=== PATIENT | female | born 1960 | race Caucasian/White ===

== ENCOUNTER → 2023-10-01 08:31 | Outpatient (REF) | payer BC, SELFPAY | LOC: RAD 08:31 | PROVIDERS: ATTENDING PHYSICIAN Family Medicine | DX: R05.2 Subacute cough (principal) | CPT/HCPCS: 71046 ==

== ENCOUNTER 2023-10-05 19:37 | Inpatient (IN) | payer BC, SELFPAY ==
[2023-10-05 15:35] VITALS: BP 139/94
[2023-10-05 16:12] LABS: Erythrocyte Sed Rate 99 mm/hour (0-20)
[2023-10-05 16:18] LABS: % Basophils 0.3 % (0-2); % Eosinophils 22.7 % (0-6); % Immature Granulocytes 1.3 % (0-0.5); % Lymphocytes 20.7 % (20.5-51.1); % Monocytes 5.8 % (1.7-9.3); % Neutrophils 49.2 % (42.2-75.2); Absolute Eosinophils 2.1 10^3/uL (0-0.7); Absolute Immature Granulocytes 0.1 10^3/uL (0-0.05); Absolute Lymphocytes 1.9 10^3/uL (1.2-3.4); Absolute Monocytes 0.5 10^3/uL (0.1-0.6); Absolute Neutrophils 4.5 10^3/uL (1.4-6.5); Hematocrit 31.6 % (37.0-47.0); Hemoglobin 10.8 g/dL (12.0-16.0); Mean Corp Hgb Conc. 34.2 g/dL (33.0-37.0); Mean Corpuscular Hgb 28.6 pg (27.0-31.0); Mean Corpuscular Volume 83.6 fL (81.0-99.0); Mean Platelet Volume 9.8 fL (7.4-10.4); Nucleated Red Blood Cells % 0 %; Platelet Count 336 10^3/uL (130-400); Red Blood Cell Count 3.78 10^6/uL (4.20-5.40); Red Cell Dist. Width 14.2 % (11.5-14.5); White Blood Cell Count 9.1 10^3/uL (4.8-10.8)
[2023-10-05 16:20] LABS: ALT (SGPT) 18 U/L (0-35); AST (SGOT) 25 U/L (14-36); Albumin 3.3 g/dl (3.5-5.0); Alkaline Phosphatase 83 U/L (38-126); Blood Urea Nitrogen 10 mg/dl (7-17); Calcium 8.7 mg/dl (8.4-10.2); Carbon Dioxide 24 mmol/L (22-30); Chloride 103 mmol/L (98-107); Glucose 100 mg/dl (70-99); Sodium 132 mmol/L (135-145); Total Bilirubin 0.8 mg/dl (0.2-1.3); Total Protein 9.1 g/dl (6.3-8.2); eGFR > 60.00
--- NOTE | 2023-10-05 17:41 | ED.GENMED ---
History of Present Illness
<Magdalena Castro NP - Last Filed: 10/05/23 22:56>
General
Chief Complaint: Visual Problem
Source: patient
Exam Limitations: none
Time Seen by Provider: 10/05/23 16:05
History of Present Illness
History of Present Illness:
Patient to ED with complaints of extreme weakness, headache, body aches, generalized hivesthat started approx 1 mos ago and continues to worsen. Difficulty with ambulation due to her weakness. Reports constant headache. Today reports blurred
vision and 3 episodes of feeling like she is looking for a Kaleidoscope. SHe has been to PCP 3 times since start of symptoms. Initial lyme neg. Elevated inflammatory markers noted. SHe was initally placed on oral prednisone taper. She reports
feeling worse while on prednisone. She was placed on famotidine which she reports has helped with her hives. Last seen by Dr. Randall on Wednesday. She was sent to [facility] for repeat labs including tick bourne diseases. As per Dr. Randall, lyme is
now positive.
Past History
<Magdalena Castro NP - Last Filed: 10/05/23 22:56>
Past History
ED Past Medical History: Other (Dysfunctional uterine bleeding.)
ED Past Surgical History:
Social History
Tobacco: Non-smoker
Alcohol: None
Personal:
Living: with family
Employment: Employed
Family History
Family History: Other (Noncontributory)
Review of Systems
<Magdalena Castro NP - Last Filed: 10/05/23 22:56>
Review of Systems
Allergies reviewed?: Yes
All Other Systems: ROS reviewed and negative except as documented in HPI and ROS
Constitutional: Reports fever, fatigue and chills
EENT: Reports other (sorethroat, sinus congestion)
Respiratory: Reports no symptoms
Cardiac: Reports no symptoms
ABD/GI: Reports no symptoms
Musculoskeletal: Reports joint pain (generalized)
Skin: Reports rash (generalized hives)
Neurological: Reports dizzy, headache and weakness
Psychiatric: Reports no symptoms
Phy Exam
<Magdalena Castro NP - Last Filed: 10/05/23 22:56>
General Physical Exam
General Presentation: moderate distress
General age: appears stated age
General Skin: warm and dry
General Habitus: normal
General Mental: alert
Cardiovascular Exam
Cardiovascular Exam: regular rate/rhythm and no edema
Pulmonary Exam
Pulmonary Exam: lungs clear and no respiratory distress
Neurological Exam
Neurological Exam: alert, oriented x3, CN II-XII intact, no motor deficits, no sensory deficits and speech normal
Mental
Mental Status: oriented to person, oriented to place and oriented to time
Cranial
Cranial Nerves: normal
EOM (CN3/4/6): intact
Motor
Gait: normal
Tremors: none
Other Movement Disorders: none
Right upper extremity: 4
Right lower extremity: 4
Left upper extremity: 4
Left lower extremity: 4
Bilateral upper extremities: 4
Sensory
Sensory Exam: intact
Cerebellar
Cerebellar Function: normal finger to nose, normal Romberg test and abnormal heel to duncan
Musculoskeletal Exam
Musculoskeletal Exam: full ROM and neuro vasc intact
Skin Exam
Skin Exam: normal color, warm/dry and no rash
Psychiatric Exam
Psychiatric Exam: normal mood/affect
Course
<Magdalena Castro NP - Last Filed: 10/05/23 22:56>
Orders/Labs/Results
Orders:
Orders
10/05/23 Dinner
Regular
At Your Request: Full Participation
Does patient need a safe tray?: No
10/05/23 15:52
C-Reactive Protein Urgent
CBC/With Diff [Complete Blood Count/With Diff] Urgent
CMP [Comprehensive Metabolic Panel] Urgent
ESR [Erythrocyte Sed Rate] Urgent
Lyme Progressive Urgent
Comment: ADDON
TSH Reflex To Free T4 Urgent
Comment: ADD ON
Blood Parasites Urgent
MIREILLE Source: B
Specimen Description:
Comment: ADDON
10/05/23 15:53
Electrocardiogram (*1) Urgent
Reason for Study: Tachycardia
EKG- Treatment ONCE
10/05/23 16:30
Add On- LAB Urgent
Tests Added?: TSH reflex free T4
10/05/23 16:35
CT Head W/o Iv Contrast Urgent
Comment:
Reason For Exam: vision changes.
10/05/23 16:45
Add On- LAB Urgent
Tests Added?: Lyme Progressive, Blood parasites
10/05/23 18:16
CefTRIAXone [Rocephin] 1,000 mg IV NOW STA
10/05/23 19:09
Admit/Transfer Patient As Directed
Co-Sign Provider:
Level of Care: Inpatient admission
Assign to:: Medical/Surgical
Physician / Group: kala
Diagnosis: lymes disease
Reason for Hospitalization: lymes disease
Expected length of stay greater than two midnights?: Yes
ELOS- Estimated Length of Stay in days: 2
I certify the patient meets the requirements for IP care: Yes
Code Status As Directed
Resuscitation Status: Full Code
10/05/23 19:18
Sterile Water [Sterile Water For Injection] 10 ml .ROUTE .STK-MED ONE
10/05/23 20:49
Acetaminophen [Tylenol] 650 mg PO Q4HPRN PRN
Heparin 5,000 units SC Q12
Ibuprofen [Motrin] 400 mg PO Q6HPRN PRN
10/05/23 20:49
Activity As Directed
Activity Level: As Tolerated
Vital Signs As Directed
Frequency: Per unit guidelines
DX Deep Vein Thrombosis Video Routine
10/05/23 21:28
Blood Culture Urgent
MIREILLE Source: Blood/Venous
Specimen Description:
10/05/23 22:00
Famotidine [Pepcid] 20 mg PO HS
10/06/23 06:00
Complete Blood Count/With Diff IN AM
Comprehensive Metabolic Panel IN AM
10/06/23 20:00
CefTRIAXone [Rocephin] 1,000 mg IV Q24H
Abnormal Lab Results
10/05/23
15:52
RBC 3.78 L 10^6/uL
(4.20-5.40)
Hgb 10.8 L g/dL
(12.0-16.0)
Hct 31.6 L %
(37.0-47.0)
Abs Immat Gran (auto) 0.1 H 10^3/uL
(0-0.05)
Absolute Eos (auto) 2.1 H 10^3/uL
(0-0.7)
Immature Gran % 1.3 H %
(0-0.5)
Eosinophils % 22.7 H %
(0-6)
ESR 99 H mm/hour
(0-20)
Sodium 132 L mmol/L
(135-145)
Glucose 100 H mg/dl
(70-99)
C-Reactive Protein 44.90 H mg/L
(0.0-10.00)
Total Protein 9.1 H g/dl
(6.3-8.2)
Albumin 3.3 L g/dl
(3.5-5.0)
10/05/23 15:52
10/05/23 15:52
Vital Signs
Initial and Last Documented VS:
Initial Vital Signs
Temp Pulse Resp BP Pulse Ox
98.0 F 114 18 139/94 96
10/05/23 15:35 10/05/23 15:35 10/05/23 15:35 10/05/23 15:35 10/05/23 15:35
Last Documented Vital Signs
Temp Pulse Resp BP Pulse Ox
99.5 F 101 18 129/80 98
10/05/23 20:53 10/05/23 20:53 10/05/23 20:53 10/05/23 20:53 10/05/23 21:00
<Andrea Giron MD - Last Filed: 10/05/23 20:19>
Orders/Labs/Results
Orders:
Orders
10/05/23 Dinner
Regular
At Your Request: Full Participation
Does patient need a safe tray?: No
10/05/23 15:52
C-Reactive Protein Urgent
CBC/With Diff [Complete Blood Count/With Diff] Urgent
CMP [Comprehensive Metabolic Panel] Urgent
ESR [Erythrocyte Sed Rate] Urgent
Lyme Progressive Urgent
Comment: ADDON
TSH Reflex To Free T4 Urgent
Comment: ADD ON
Blood Parasites Urgent
MIREILLE Source: B
Specimen Description:
Comment: ADDON
10/05/23 15:53
Electrocardiogram (*1) Urgent
Reason for Study: Tachycardia
EKG- Treatment ONCE
10/05/23 16:30
Add On- LAB Urgent
Tests Added?: TSH reflex free T4
10/05/23 16:35
CT Head W/o Iv Contrast Urgent
Comment:
Reason For Exam: vision changes.
10/05/23 16:45
Add On- LAB Urgent
Tests Added?: Lyme Progressive, Blood parasites
10/05/23 18:16
CefTRIAXone [Rocephin] 1,000 mg IV NOW STA
10/05/23 19:09
Admit/Transfer Patient As Directed
Co-Sign Provider:
Level of Care: Inpatient admission
Assign to:: Medical/Surgical
Physician / Group: kala
Diagnosis: lymes disease
Reason for Hospitalization: lymes disease
Expected length of stay greater than two midnights?: Yes
ELOS- Estimated Length of Stay in days: 2
I certify the patient meets the requirements for IP care: Yes
Code Status As Directed
Resuscitation Status: Full Code
10/05/23 19:18
Sterile Water [Sterile Water For Injection] 10 ml .ROUTE .STK-MED ONE
10/05/23 20:49
Acetaminophen [Tylenol] 650 mg PO Q4HPRN PRN
Heparin 5,000 units SC Q12
Ibuprofen [Motrin] 400 mg PO Q6HPRN PRN
10/05/23 20:49
Activity As Directed
Activity Level: As Tolerated
Vital Signs As Directed
Frequency: Per unit guidelines
DX Deep Vein Thrombosis Video Routine
10/05/23 21:28
Blood Culture Urgent
MIREILLE Source: Blood/Venous
Specimen Description:
10/05/23 22:00
Famotidine [Pepcid] 20 mg PO HS
10/06/23 06:00
Complete Blood Count/With Diff IN AM
Comprehensive Metabolic Panel IN AM
10/06/23 20:00
CefTRIAXone [Rocephin] 1,000 mg IV Q24H
Abnormal Lab Results
10/05/23
15:52
RBC 3.78 L 10^6/uL
(4.20-5.40)
Hgb 10.8 L g/dL
(12.0-16.0)
Hct 31.6 L %
(37.0-47.0)
Abs Immat Gran (auto) 0.1 H 10^3/uL
(0-0.05)
Absolute Eos (auto) 2.1 H 10^3/uL
(0-0.7)
Immature Gran % 1.3 H %
(0-0.5)
Eosinophils % 22.7 H %
(0-6)
ESR 99 H mm/hour
(0-20)
Sodium 132 L mmol/L
(135-145)
Glucose 100 H mg/dl
(70-99)
C-Reactive Protein 44.90 H mg/L
(0.0-10.00)
Total Protein 9.1 H g/dl
(6.3-8.2)
Albumin 3.3 L g/dl
(3.5-5.0)
10/05/23 15:52
10/05/23 15:52
Vital Signs
Initial and Last Documented VS:
Initial Vital Signs
Temp Pulse Resp BP Pulse Ox
98.0 F 114 18 139/94 96
10/05/23 15:35 10/05/23 15:35 10/05/23 15:35 10/05/23 15:35 10/05/23 15:35
Last Documented Vital Signs
Temp Pulse Resp BP Pulse Ox
99.5 F 101 18 129/80 98
10/05/23 20:53 10/05/23 20:53 10/05/23 20:53 10/05/23 20:53 10/05/23 21:00
<Magdalena Castro NP - Last Filed: 10/05/23 22:56>
*Critical Care Note
Total Time (30-74mins, 75-104mins- exclusive of procedures): Not Applicable
ED Attending Note
<Magdalena Castro NP - Last Filed: 10/05/23 22:56>
-
Portions of this chart may have been created with voice recognition software.� Occasional wrong word or��sound alike� substitutions may have occurred due to the inherent limitations of voice recognition software.
<Andrea Giron MD - Last Filed: 10/05/23 20:19>
ED Attending Note
Patient seen and examined by attending physician: Yes
I performed the substantive portion of visit, reviewed & personally made and approve the management plan that is documented in note by myself or ELIN.: Yes
ED Attending Note:
Patient with ongoing symptoms including myalgias joint pain pain with ambulation now complaining of some blurry vision. Patient had outpatient elevated inflammatory markers. Today's had some blurry vision. Positive outpatient Lyme titer recently
although initial 1 was negative. Positive EBV titers with IgM positive.
On exam patient is nontoxic in no distress. Nonfocal. No significant rash. No CCM rash. Neck is supple. Discs are sharp. Speech is normal. Lungs are clear and equal. Regular rate and rhythm no murmur. Abdomen nontender. No obvious joint
swelling or deformity.
Impression is progressive myalgias and arthralgias with elevated inflammatory markers. Differential would include Lyme disease viral illness or collagen vascular disease. Elevated eosinophil level would make consideration of collagen vascular
disease or allergic issue as a possibility. Patient symptoms are progressing enough that they warrant further inpatient management
Discharge Plan
Departure
Patient Disposition: Admit
Date of Disposition: 10/05/23
Time of Disposition: 18:28
Presentation/result/management discussed w/ accepting MD/DO: Hospitalist
Patient with high blood pressure during this ER visit?: No
Condition: Fair
Discharge Problem:
Suspected Lyme disease, Weakness
Interventions
Interventions:
*Risk Screen - Suicide Last Done: 10/05/23 15:35
*General Assessment Last Done: 10/05/23 15:35
*Neglect/Abuse Screening Last Done: 10/05/23 15:35
ED- Fall Risk Assessment Last Done: 10/05/23 20:53
*ED COVID-19 Vaccine History Last Done: 10/05/23 15:55
*Nursing Disposition Last Done: 10/05/23 20:53
ED- Neurological Assessment Last Done: 10/05/23 16:44
ED-EENT Assessment Last Done: 10/05/23 16:44
Discharge Date and Time
Discharge Date/Time: 10/05/23 20:54
--- NOTE | 2023-10-05 19:12 | HPS.HSE ---
Family Physician
-
Family Physician: Jocelyn Randall
Chief Complaint
-
weakness
History of Present Illness
63-year-old female past medical history of dysfunctional uterine bleeding presenting with weakness/fatigue, headache, neck pain, body aches, diffuse hives, chills starting 1 month ago. She has been seeing her primary care physician 3 times since
the start of symptoms. She was initially tested for Lyme's last month which was negative. She was started on oral prednisone taper which made her feel worse. She tried taking Benadryl, Tylenol and ibuprofen which she felt made the hives worse and
only Pepcid helped.
She was tested again for Lymes and tickborne illnesses 3 days ago and today she found out she was positive for Lyme's. She was started on cefuroxime 6 days ago with some slight improvement initially but no further improvement.
She has also begun to have blurred vision and kaleidoscope colors in her visual field. She also has a dry cough with shortness of breath. She denies any chest pain.
She denies finding any ticks on her body but [place] where she would be exposed. She denies any recent travel history.
She is a former smoker. She denies alcohol.
Medical History
Past Medical History
Past Medical History: Reports None
Past Surgical History: Reports
Social History
Tobacco: Former Smoker
Alcohol: None
Drug: None
Family History
Family History: Not pertinent
Allergies / Home Medications
Allergies reflects when Allergies were last updated in [facility].
Home Medications with original date entered in [facility]
Allergy/Medication List:
Allergies
Allergy/AdvReac Type Severity Reaction Status Date / Time
Iodinated Contrast Media Allergy Intermediate Hives Verified 10/05/23 15:40
[IV Dye, Iodine Containing]
Home Medications
cefdinir 300 mg capsule 300 mg PO BID 10/05/23
famotidine 20 mg tablet (Pepcid AC) 20 mg PO HS 10/05/23
triamcinolone acetonide 0.1 % topical ointment 1 applic topical DAILYPRN PRN rash 10/05/23
Review of Systems
-
History Source: Patient
A 12 point ROS was completed and negative except as noted: Yes
Constitutional: Reports See HPI
EENT: Reports No Symptoms
Respiratory: Reports See HPI
Cardiac: Reports No Symptoms
Abdomen/GI: Reports No Symptoms
: Reports No Symptoms
Musculoskeletal: Reports See HPI
Skin: Reports No Symptoms
Neurological: Reports See HPI
Endocrine: Reports No Symptoms
Hematologic/Lymphatic: Reports No Symptoms
Psych: Reports No Symptoms
Physical Exam
Vital Signs
Vital Signs
Temp Pulse Resp BP Pulse Ox
98.0 F 114 18 139/94 96
10/05/23 15:35 10/05/23 15:35 10/05/23 15:35 10/05/23 15:35 10/05/23 15:35
Physical Exam
General: Well Developed, Well Nourished and No Apparent Distress
HEENT: NormoCephalic, Moist mucous membranes and Atraumatic
Respiratory: Clear
Cardiac: S1/S2 and Regular Rhythm; No Murmur or Rub
GI: Soft, Non Tender, Non Distended and Normal Bowel Sounds; No Organomegaly
Rectal: Deferred by Provider
Musculoskeletal: No Clubbing, No Cyanosis and No Edema
Skin: No Rash
Neuro: Nonfocal/grossly intact
Laboratory Results
-
10/05/23 15:52
10/05/23 15:52
Laboratory Results
Total Bilirubin 0.8 mg/dl (0.2-1.3) 10/05/23 15:52
AST 25 U/L (14-36) 10/05/23 15:52
ALT 18 U/L (0-35) 10/05/23 15:52
Alkaline Phosphatase 83 U/L (38-126) 10/05/23 15:52
Data Reviewed
-
Lab Data: Labs Reviewed by me
Old Records: Reviewed
Impression/Plan
-
IMPRESSION:
PLAN:
# Lyme's disease
-Check blood cultures
-Lyme's antibody pending
-Blood parasites pending
-Awaiting lab testing from [facility] where she had positive Lyme's test
-CT head pending
-TSH pending
-Check chest x-ray
-Ceftriaxone
-ID consulted
-Tylenol, ibuprofen for body aches
-Pepcid for rash, patient refusing Benadryl
History of dysfunctional uterine bleeding
Full code
DVT prophylaxis�heparin
Regular diet
[2023-10-05] MEDS: ROCEPHIN 1000 MG IV (19:19)
[2023-10-05 19:26] VITALS: BP 111/85
[2023-10-05 20:00] VITALS: BP 108/80
[2023-10-05 20:52] VITALS: BMI 35.4
[2023-10-05 20:53] VITALS: BP 129/80
--- NOTE | 2023-10-05 20:56 | PTCARENOTE ---
Patient received from ED via wheelchair. Patient ambulated into the room. AAOx3, VSS. Pt reports no pain at this time. Patient oriented to the room, call carlos is within reach.
[2023-10-05] MEDS: PEPCID 20 MG PO (21:15)
[2023-10-05 23:42] VITALS: BP 95/55
[2023-10-06 06:50] LABS: % Basophils 0.5 % (0-2); % Eosinophils 21.8 % (0-6); % Immature Granulocytes 1.4 % (0-0.5); % Lymphocytes 23.7 % (20.5-51.1); % Neutrophils 46.6 % (42.2-75.2); Absolute Eosinophils 1.8 10^3/uL (0-0.7); Absolute Immature Granulocytes 0.1 10^3/uL (0-0.05); Absolute Lymphocytes 1.9 10^3/uL (1.2-3.4); Absolute Monocytes 0.5 10^3/uL (0.1-0.6); Absolute Neutrophils 3.7 10^3/uL (1.4-6.5); Hematocrit 30.4 % (37.0-47.0); Mean Corp Hgb Conc. 32.9 g/dL (33.0-37.0); Mean Corpuscular Hgb 28.3 pg (27.0-31.0); Mean Corpuscular Volume 86.1 fL (81.0-99.0); Mean Platelet Volume 9.8 fL (7.4-10.4); Nucleated Red Blood Cells % 0 %; Platelet Count 284 10^3/uL (130-400); Red Blood Cell Count 3.53 10^6/uL (4.20-5.40); Red Cell Dist. Width 14.2 % (11.5-14.5)
[2023-10-06 07:22] LABS: ALT (SGPT) 15 U/L (0-35); AST (SGOT) 21 U/L (14-36); Albumin 2.8 g/dl (3.5-5.0); Alkaline Phosphatase 69 U/L (38-126); Blood Urea Nitrogen 7 mg/dl (7-17); Calcium 8.2 mg/dl (8.4-10.2); Carbon Dioxide 22 mmol/L (22-30); Chloride 104 mmol/L (98-107); Estimated Creatinine Clearance 85 ml/min; Glucose 100 mg/dl (70-99); Potassium 3.8 mmol/L (3.5-5.1); Sodium 134 mmol/L (135-145); Total Bilirubin 0.5 mg/dl (0.2-1.3); Total Protein 7.9 g/dl (6.3-8.2); eGFR > 60.00
[2023-10-06 07:40] VITALS: BP 104/61
--- NOTE | 2023-10-06 07:59 | W.PN.HOSP.TC ---
Today's Communication/Plan
-
see A/P
Assessment / Plan
Assessment / Plan
HPI: 63-year-old female past medical history of dysfunctional uterine bleeding presented with weakness/fatigue, headache, neck pain, body aches, diffuse hives, chills that started 1 month ago.
She has seen her primary care physician 3 times since the start of symptoms. She was initially tested for Lyme's last month which was negative. She was started on oral prednisone taper which made her feel worse. She tried taking Benadryl, Tylenol
and ibuprofen which she felt made the hives worse and only Pepcid helped.
She was tested again for Lymes and tickborne illnesses 3 days ago [employer] and she found out she was positive for Lyme's. She was started on cefuroxime 6 days ago [employer] with some slight improvement initially but no further improvement.
She has also begun to have blurred vision and kaleidoscope colors in her visual field. She also has a dry cough with shortness of breath. She denies any chest pain.
She denies finding any ticks on her body but [place] area where she would be exposed. She denies any recent travel history.
She is a former smoker. She denies alcohol.
A/P:
# Lyme's disease
Follow blood cultures
Follow Lyme's serology
Blood parasites smear: no parasite seen
CT head: No acute intracranial abnormality noted.
TSH WNL at 2.0
Chest x-ray noted hyperaeration may be a sign of an asthmatic type process, or COPD
Cont Ceftriaxone, add doxycycline
Cont Tylenol, ibuprofen for body aches
Cont Pepcid for rash, patient refused Benadryl
ID consulted
# Mild hyponatremia
Sodium level 134
# Normocytic anemia, may be from dysfunctional uterine bleeding
Hgb 10 from baseline 14
Check iron panel, B12, folate levels
# History of dysfunctional uterine bleeding
Full code
DVT prophylaxis� lovenox SQ
Regular diet
DW at bedside
Anticipated Discharge: Within 24 hours
Subjective/Interval History
-
Date of Service: October 06, 2023
Objective Data
-
Labs:
Laboratory Results
10/06/23
05:50
WBC 8.0
Hgb 10.0 L
Hct 30.4 L
Plt Count 284
Sodium 134 L
Potassium 3.8
Chloride 104
Carbon Dioxide 22
BUN 7
Creatinine 0.8
Glucose 100 H
Calcium 8.2 L
Total Bilirubin 0.5
AST 21
ALT 15
Alkaline Phosphatase 69
Vital Signs:
Vital Signs
Temp Pulse Resp BP Pulse Ox
37.3 C 91 18 95/55 96
10/05/23 23:42 10/05/23 23:42 10/05/23 23:42 10/05/23 23:42 10/05/23 23:42
I&O
10/05/23 10/06/23 10/07/23
06:59 06:59 06:59
Intake Total 480 / 480
Balance 480 / 480
Review of Systems
-
Neuro: Reports Headache (mild) and Other (mild neck spasm (back of neck))
Physical Exam
-
General: Well Developed, Well Nourished, No Apparent Distress, Comfortable and Conversant; Negative Respiratory Distress
HEENT: Normocephalic, Atraumatic, Nose Appears Normal and Ears Appear Normal; Negative Oxygen
Respiratory: Clear to Auscultation and Non Labored Respirations; Negative Accessory Resp Muscle Use
Cardiac: Regular Rhythm and S1/S2
GI: Soft, Nontender, Nondistended and Normal Bowel Sounds
Skin: Warm and Dry
Neuro: Awake, Alert, Oriented, AO x 3 and Nonfocal/Grossly Intact
Psych: Calm and Intact Judgement/Insight
Data Reviewed
-
CT Scan: Report Reviewed by me
Labs: Labs Reviewed by me
[2023-10-06 08:51] LABS: Iron 60 ug/dl (37-170)
[2023-10-06 09:01] LABS: Percent Saturation 34 % (20-50); Total Iron Binding Capacity 173 ug/dl (265-497)
[2023-10-06 09:20] VITALS: BP 120/75; PULSE 96
[2023-10-06 09:21] VITALS: BP 120/75; PULSE 96
--- NOTE | 2023-10-06 09:30 | PTOTSP ---
The patient demonstrated independence with ambulation and elevations without a device. Discussed with her gradually increasing activity level, which she mentioned she could do by walking in her long hallways at work. Discussed the option of
Outpatient PT to address strength/endurance deficits if she felt it was necessary. Encouraged the patient to walk in the hallway while here to increase activity level. No acute PT needs at this time, will sign off.
[2023-10-06] MEDS: VIBRAMYCIN 260 MG IV (10:29)
[2023-10-06 10:47] LABS: Folate 4.6 ng/ml (2.76-20); Vitamin B12 236 pg/ml (239-931)
--- NOTE | 2023-10-06 13:23 | CON.ID ---
Consultation
-
Date/Time Consultation Requested: 10/05/23 22:03
Date/Time Consultation Performed: 10/06/23 13:24
Requesting Provider: Dr Singh
Performing Provider: Dr Ray
Reason for Consultation: lyme disease
Chief Complaint / Past History
Chief Complaint
weakness
History of Present Illness
Ms Juan is a 63 year old female without significant past medical therapy who presented here for a 1 month history of chills, weakness/fatigue, headache, neck pain, body aches, diffuse hives. She was tested for lyme disease 1 month ago with negative
serologies at that time, repeat serologies have become positive for IgM for lyme however babesia, anaplasma, ehrlichia serologies remain normal. Reports symptoms initially began one month ago with malaise. She does now tell me that she was having
chills and sweats at that time which is new information to me. The progressed to headache, not improving with motrin, took tyelnol and shortly thereafter developed hives which have persisted. Progressed to myalagias, no joint pains. Saw PCP for
hives and given prednisone taper from 40 mg PO qday x4 days tapering by 10 mg each 4 days. Hives did not respond. Started allerga but had palpiations and shortness of breath she attributed to hives. [place]. No known tick
bites. She was started on cefuroxime 6 days ago with minimal improvment. Earlier in her course she has had a course of oral steroids for the rash with progression of the hives. now reporting blurred vision with kaleidoscope colors, dry cough and
shortness of breath. Presented here.
Since arrival here wbc 8.0, hgb 10, plt 284, no L shift, she has eosinophilia with AEC 1600, cr 0.8, crp 44, t bili 0.5, ast 21, alt 15, alk penny 69, a third lyme test has been sent today, babesia smear was negative, blood cultures no growth to date,
ekg no blocks, CT head no lesions, currently on IV ceftriaxone and IV doxycycline. ID is consulted for assistance with management.
Past History
Past Medical History: None
Past Surgical History:
Additional Past Surgical History:
Allergy History:
Iodinated Contrast Media [IV Dye, Iodine Containing] Allergy (Intermediate, Verified 10/05/23 15:40)
Hives
Medications Reviewed: Yes
Social History
Tobacco: Former Smoker
Alcohol: None
Drug: None
Family History
Family History: Not Pertinent
Review of Systems
Review of Systems
General: Chills; Negative Fever
All systems: All other systems were reviewed and were negative
Vital Signs
Temp Pulse Resp BP Pulse Ox
98.7 F 90 16 104/61 96
10/06/23 07:40 10/06/23 07:40 10/06/23 07:40 10/06/23 07:40 10/06/23 07:40
Physical Exam
Physical Exam
Constitutional: No Acute Distress
Cardiovascular: Regular Rate and S1/S2; Negative Murmur or Rub
Pulmonary: Clear and Symmetric; Negative Wheezes, Rales or Rhonchi
Gastrointestinal: Soft, Non Tender, Non Distended and Normal Bowel Sounds
Skin: Warm, Dry and Rash (diffuse hives, palpable raised mildly erythematous lesions, no excoriations); Negative Jaundice
Lab / Diagnostic Study Results
10/06/23 05:50
10/06/23 05:50
Abs Immat Gran (auto) 0.1 10^3/uL (0-0.05) H 10/06/23 05:50
Absolute Neuts (auto) 3.7 10^3/uL (1.4-6.5) 10/06/23 05:50
Absolute Lymphs (auto) 1.9 10^3/uL (1.2-3.4) 10/06/23 05:50
Absolute Monos (auto) 0.5 10^3/uL (0.1-0.6) 10/06/23 05:50
Absolute Basos (auto) 0.0 10^3/uL (0-0.2) 10/06/23 05:50
Immature Gran % 1.4 % (0-0.5) H 10/06/23 05:50
Neutrophils % 46.6 % (42.2-75.2) 10/06/23 05:50
Lymphocytes % 23.7 % (20.5-51.1) 10/06/23 05:50
Monocytes % 6.0 % (1.7-9.3) 10/06/23 05:50
Eosinophils % 21.8 % (0-6) H 10/06/23 05:50
Basophils % 0.5 % (0-2) 10/06/23 05:50
ESR 99 mm/hour (0-20) H 10/05/23 15:52
C-Reactive Protein 44.90 mg/L (0.0-10.00) H 10/05/23 15:52
Microbiology Results
Micro:
10/06/23 09:55 Blood Culture - Pending
Blood/Venous
10/05/23 21:28 Blood Culture - Pending
Blood/Venous
10/05/23 15:52 Blood Parasites Smear - Final
Blood/Venous No blood parasites seen.
Assessment / Plan
Probable Acute Lyme Disease
Eosinophilia - AEC 1600
- coinfection with ehrlichia, anaplasma, babesia ruled out
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
- continue doxycycline plan 21 days of therapy - switched to oral as not vomiting and 100% bioavailability
- would recheck eosinophils daily while here and then again in two weeks
- hives likely driven by eosinophilia. Eosinophilia is not typical in lyme disease but can be caused by any subacute infection
- maximized famotidine
- refuses benadryl, second gen H2 jono
- could try topical benadryl or steroids if not responding to famotidine
- suspect visual changes are migraine.
- follow clinically
[2023-10-06 15:30] VITALS: BP 115/68
--- NOTE | 2023-10-06 16:48 | CM ---
Kelly is a 63yo female admitted to with new dx of Lymes. Prior to illness she wa (I) amb and adl's. Currently she is ambulating with a cane for long distances/uneven surfaces. She anticipates returning home at discharge with no needs.
Plan: discharge with no needs
PCP: Jocelyn Randall
Pharmacy: [facility]
[2023-10-06] MEDS: PEPCID 20 MG PO (20:30)
[2023-10-06] MEDS: VIBRAMYCIN 100 MG PO (20:30)
[2023-10-06 23:43] VITALS: BP 105/62
[2023-10-07 07:32] LABS: % Basophils 0.5 % (0-2); % Eosinophils 18.1 % (0-6); % Immature Granulocytes 1.6 % (0-0.5); % Lymphocytes 25.7 % (20.5-51.1); % Monocytes 6.1 % (1.7-9.3); Absolute Eosinophils 1.4 10^3/uL (0-0.7); Absolute Immature Granulocytes 0.1 10^3/uL (0-0.05); Absolute Monocytes 0.5 10^3/uL (0.1-0.6); Absolute Neutrophils 3.8 10^3/uL (1.4-6.5); Hematocrit 31.3 % (37.0-47.0); Hemoglobin 10.4 g/dL (12.0-16.0); Mean Corp Hgb Conc. 33.2 g/dL (33.0-37.0); Mean Corpuscular Hgb 28.7 pg (27.0-31.0); Mean Corpuscular Volume 86.2 fL (81.0-99.0); Mean Platelet Volume 9.5 fL (7.4-10.4); Nucleated Red Blood Cells % 0 %; Platelet Count 263 10^3/uL (130-400); Red Blood Cell Count 3.63 10^6/uL (4.20-5.40); Red Cell Dist. Width 14.5 % (11.5-14.5); White Blood Cell Count 7.9 10^3/uL (4.8-10.8)
[2023-10-07] MEDS: VIBRAMYCIN 100 MG PO (07:32)
[2023-10-07] MEDS: PEPCID 20 MG PO (07:32)
[2023-10-07 07:55] VITALS: BP 111/76
[2023-10-07 08:00] LABS: Blood Urea Nitrogen 8 mg/dl (7-17); Calcium 8.4 mg/dl (8.4-10.2); Carbon Dioxide 23 mmol/L (22-30); Chloride 108 mmol/L (98-107); Estimated Creatinine Clearance 97 ml/min; Glucose 102 mg/dl (70-99); Potassium 4.1 mmol/L (3.5-5.1); Sodium 136 mmol/L (135-145); eGFR > 60.00
--- NOTE | 2023-10-07 09:05 | W.PN.HOSP.TC ---
Addendum entered and electronically signed by Talita Combs MD 10/07/23 12:45:
total DC time 35 min
Original Note:
Today's Communication/Plan
-
see A/P
Assessment / Plan
Assessment / Plan
HPI: 63-year-old female past medical history of dysfunctional uterine bleeding presented with weakness/fatigue, headache, neck pain, body aches, diffuse hives, chills that started 1 month ago.
She has seen her primary care physician 3 times since the start of symptoms. She was initially tested for Lyme's last month which was negative. She was started on oral prednisone taper which made her feel worse. She tried taking Benadryl, Tylenol
and ibuprofen which she felt made the hives worse and only Pepcid helped.
She was tested again for Lymes and tickborne illnesses 3 days ago [facility] and she found out she was positive for Lyme's. She was started on cefuroxime 6 days ago [facility] with some slight improvement initially but no further improvement.
She has also begun to have blurred vision and kaleidoscope colors in her visual field. She also has a dry cough with shortness of breath. She denies any chest pain.
She denies finding any ticks on her body but [place] would be exposed. She denies any recent travel history.
She is a former smoker. She denies alcohol.
A/P:
# Lyme's disease
blood cultures so far negative
Follow Lyme's serology sent from ED (can follow up with PCP, although likely no need to do so given pt already known to have seroconverted)
Blood parasites smear: no parasite seen
CT head: No acute intracranial abnormality noted.
TSH WNL at 2.0
Chest x-ray noted hyperaeration may be a sign of an asthmatic type process, or COPD
Off Ceftriaxone, cont PO doxycycline 100 mg BID for total 21 days
Cont Tylenol, ibuprofen for body aches
Cont Pepcid for rash, patient refused Benadryl
ID input appreciated
# Mild hyponatremia, resolved
Sodium level 136
# Normocytic anemia, may be from dysfunctional uterine bleeding
Hgb 10 from baseline 14
iron panel acceptable
B12 level low, will start B12 repletion
# History of dysfunctional uterine bleeding
Full code
DVT prophylaxis� lovenox SQ
Regular diet
DW ID
Anticipated Discharge: Today
Subjective/Interval History
-
Date of Service: October 07, 2023
Objective Data
-
Labs:
Laboratory Results
10/07/23
06:52
WBC 7.9
Hgb 10.4 L
Hct 31.3 L
Plt Count 263
Sodium 136
Potassium 4.1
Chloride 108 H
Carbon Dioxide 23
BUN 8
Creatinine 0.7
Glucose 102 H
Calcium 8.4
Vital Signs:
Vital Signs
Temp Pulse Resp BP Pulse Ox
37.2 C 98 20 111/76 95
10/07/23 07:55 10/07/23 07:55 10/07/23 07:55 10/07/23 07:55 10/07/23 07:55
I&O
10/06/23 10/07/23 10/08/23
06:59 06:59 06:59
Intake Total 480 / 480 1200 / 1200
Balance 480 / 480 1200 / 1200
Review of Systems
-
All other systems: Reviewed and negative
Physical Exam
-
General: Well Developed, Well Nourished, No Apparent Distress, Comfortable and Conversant; Negative Respiratory Distress
HEENT: Normocephalic, Atraumatic, Nose Appears Normal and Ears Appear Normal; Negative Oxygen
Respiratory: Clear to Auscultation and Non Labored Respirations; Negative Accessory Resp Muscle Use
Cardiac: Regular Rhythm and S1/S2
GI: Soft, Nontender, Nondistended and Normal Bowel Sounds
Skin: Warm and Dry
Neuro: Awake, Alert, Oriented, AO x 3 and Nonfocal/Grossly Intact
Psych: Calm and Intact Judgement/Insight
Data Reviewed
-
CT Scan: Report Reviewed by me
Labs: Labs Reviewed by me
--- NOTE | 2023-10-07 11:01 | CM ---
Attempted to meet with Kelly this morning, however she was asleep. Her roommate had mentioned that Kelly has been struggling, so I did not attempt to wake her.
CM to return later today to speak with Kelly.
--- NOTE | 2023-10-07 11:43 | W.PN.ID1 ---
Date of Service
Date of Service: October 07, 2023
Today's Communication
hives resolve
AEC improving
doxycycline x21 days
cbc with diff in two weeks
follow up with pcp, follow up with ID PRN
Assessment / Plan
Probable Acute Lyme Disease
Eosinophilia - improving
AEC now 1400 - declining
- coinfection with ehrlichia, anaplasma, babesia ruled out
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
- continue doxycycline plan 21 days of therapy - switched to oral as not vomiting and 100% bioavailability
- would recheck eosinophils and calculate AEC again in two weeks
- hives likely driven by eosinophilia. Eosinophilia is not typical in lyme disease but can be caused by any subacute infection. Hives did resolve today
- maximized famotidine 20 mg po BID
- refuses benadryl, second gen H2 jono
- could try topical benadryl or steroids if not responding to famotidine
- suspect visual changes are migraine.
- follow clinically
Chief Complaint
-: Other (lyme, eosinophilia)
Subjective / Review of Systems
afebrile
bp stable
without leukocytosis
AEC now 1400 - declining
tolerating current therapies
no hives today
Vital Signs / Physical Exam
Vital Signs
Vital Signs
Temp Pulse Resp BP Pulse Ox
98.9 F 98 20 111/76 95
10/07/23 07:55 10/07/23 07:55 10/07/23 07:55 10/07/23 07:55 10/07/23 07:55
Physical Exam
Constitutional: No Acute Distress
Cardiovascular: Regular Rate and S1/S2; Negative Murmur or Rub
Pulmonary: Clear and Symmetric; Negative Wheezes or Rales
Gastrointestinal: Soft, Non Tender, Non Distended and Normal Bowel Sounds
Skin: Warm and Dry; Negative Rash (hives have resolved) or Jaundice
Objective Data
Lab Data
Lab Results
10/07/23 06:52
10/07/23 06:52
ESR 99 mm/hour (0-20) H 10/05/23 15:52
Estimated Creat Clear 97 ml/min 10/07/23 06:52
Total Bilirubin 0.5 mg/dl (0.2-1.3) 10/06/23 05:50
AST 21 U/L (14-36) 10/06/23 05:50
ALT 15 U/L (0-35) 10/06/23 05:50
Alkaline Phosphatase 69 U/L (38-126) 10/06/23 05:50
C-Reactive Protein 44.90 mg/L (0.0-10.00) H 10/05/23 15:52
Most recent labs reviewed.
Micro Results:
10/06/23 09:55 Blood Culture - Preliminary
Blood/Venous No Growth in 24 hours- Final report to follow
10/05/23 21:28 Blood Culture - Preliminary
Blood/Venous No Growth in 24 hours- Final report to follow
10/05/23 15:52 Blood Parasites Smear - Final
Blood/Venous No blood parasites seen.
Care Review
Plan reviewed with: Physician (Dr Combs plan, dispo)
[2023-10-07 11:55] VITALS: BP 109/71
--- NOTE | 2023-10-07 12:32 | W.DCSUMMARY ---
Discharge Summary
Discharge Data
Date of Admission: 10/05/23
Date of Discharge: 10/07/23
-
Pending Results: No
Hospital Course
Principal Diagnosis:
Lyme's disease
Low B12 level at 236
Chronic Diagnoses:�
Normocytic anemia, may be from dysfunctional uterine bleeding
History of dysfunctional uterine bleeding
Consultations:�
Infectious disease
Procedures:�
None
Clinical course:�
This is a 63-year-old female with past medical history as stated above, who presented with weakness/fatigue, mild headache, neck pain, body aches, diffuse hives, chills that started 1 month ago.
He was tested positive for Lyme's disease outpatient.
Problem 1:
Lyme's disease.
Her blood cultures were negative.
Her blood parasites smear showed no parasite.
Lyme serology was again sent from the emergency room, which can be followed up outpatient. Although following up Lyme serology may not be necessary anymore given patient is already known to have seroconverted.
Her CT head showed no acute intracranial abnormality.
She was briefly on ceftriaxone from admission which was later taken off.
She can continue with oral doxycycline 100 mg twice daily for total 21 days per ID.
She can continue with Pepcid for her skin rash which has significantly improved during her hospital stay.
As for the rest of her medical problems, they were stable during her hospital stay.
Discharge Plan
-
Patient Disposition: Home (Routine Discharge)
Discharge Diagnosis/Procedures: Lyme's disease; low B12 level (at 236)
Condition: Good
Diet: As tolerated
Activity: As tolerated
Driving Restrictions: Not until seen by your Dr
Blood Work: CBC with diff, with your PCP in 2 weeks
Referrals:
Jocelyn Randall MD [Family Provider] - in less than 1 week
Additional Discharge Medication Instructions: continue oral doxycycline 100 mg twice daily for 20 more days (avoid sun exposure and dairy product while on doxycycline)
Continue B12 supplement
You can take pepcid twice daily for your skin rash
Prescriptions:
New
doxycycline hyclate 100 mg Capsule
100 mg PO Q12 20 Days Qty: 40 0RF
cyanocobalamin (vitamin B-12) 1,000 mcg Tablet
1,000 mcg PO DAILY Qty: 30 0RF
Continued
triamcinolone acetonide 0.1 % Ointment
1 applic TOPICAL DAILYPRN PRN (Reason: rash)
Changed
famotidine [Pepcid AC] 20 mg Tablet
20 mg PO Q12H Qty: 0 0RF
Discontinued
cefdinir 300 mg Capsule
300 mg PO BID
Patient Comments:
10/05/23: filled 09/30/23, take 1 capsule twice a day for 7 days
Discharge Orders:
Discharge Patient (As Directed); Ordered 10/07/23
Ordered By: Talita Combs
Discharge Date and Time
Print Language: GREENLANDIC
[2023-10-07] MEDS: VITAMIN B-12 1000 MCG PO (12:46)
--- NOTE | 2023-10-07 12:47 | CM ---
Arvind met with Kelly at bedside today. She is being discharged to home today and feels that it will be good to be home in her own bed. She has not been able to sleep much during the hospitalization.
Kelly's will pick her up to go home.
No needs identified.
[2023-10-07 15:51] LABS: Lyme Antibody Screen, EIA Negative (Negative)
== END 2023-10-07 13:52 | disposition home or self-care (01) | DRG 868 ==
LOC: 4 EAST ACU 19:37
PROVIDERS: ADMITTING PHYSICIAN Hospitalist; ATTENDING PHYSICIAN Internal Medicine; EMERGENCY PHYSICIAN Emergency Medicine; FAMILY PHYSICIAN Family Medicine; OTHER PHYSICIAN Student in an Organized Health Care Education/Training Program
DX: A69.20 Lyme disease, unspecified (principal); E87.1 Hypo-osmolality and hyponatremia; D64.9 Anemia, unspecified; Z87.42 Personal history of other diseases of the female genital tract
CPT/HCPCS: 70450; 80048; 80053; 82607; 82728; 82746; 83540; 83550; 83735; 84443; 85025; 85652; 86140; 86618; 87015; 87040; 87207; 93005; 97161; 97166; 99285

== ENCOUNTER → 2024-09-14 09:47 | Outpatient (REF) | payer BC, SELFPAY | LOC: RAD 09:47 | PROVIDERS: ATTENDING PHYSICIAN Family Medicine | DX: R13.19 Other dysphagia (principal) | CPT/HCPCS: 76536 ==

== ENCOUNTER → 2024-09-26 19:25 | Outpatient (REF) | payer BC, SELFPAY | LOC: WDC 19:25 | PROVIDERS: ATTENDING PHYSICIAN Family Medicine | DX: Z12.31 Encounter for screening mammogram for malignant neoplasm of breast (principal) | CPT/HCPCS: 77063; 77067 ==

== ENCOUNTER → 2024-12-18 06:56 | Outpatient (REF) | payer BC, SELFPAY | LOC: RAD 06:56 | PROVIDERS: ATTENDING PHYSICIAN Otolaryngology; FAMILY PHYSICIAN Family Medicine; REFERRING PHYSICIAN Internal Medicine Gastroenterology | DX: D14.1 Benign neoplasm of larynx (principal) | CPT/HCPCS: 70491; Q9967 ==

== ENCOUNTER 2024-12-25 08:10 | Emergency (ER) | payer BC, SELFPAY ==
[2024-12-25 08:11] VITALS: BP 137/90
[2024-12-25 09:01] VITALS: BMI 28.5
[2024-12-25] MEDS: NSS 1000 IV (09:26)
--- NOTE | 2024-12-25 09:26 | ED.GENMED ---
History of Present Illness
General
Chief Complaint: Skin Problem
Time Seen by Provider: 12/25/24 08:35
Nursing documentation reviewed up to this point in time: agreed with
History of Present Illness
History of Present Illness:
64-year-old female presents to the ER for evaluation of right-sided facial swelling noted this morning on awakening. Patient is currently undergoing malignancy workup for a mass on her larynx. She has been experiencing hoarse voice and is
currently being evaluated by ENT. She had outpatient CT last week confirming presence of mass along with regional lymphadenopathy and some evidence of possible metastatic disease in the chest. She reports that she last saw the dentist 3 weeks ago
and had routine exam, she has not been on any antibiotics recently. She denies any dental pain per se. She denies any pain with mouth opening. She has had right ear pain for the last several weeks, this is not new today. She has been eating and
drinking but has pain with swallowing, again not new today. She denies any peripheral edema. She denies fevers or chills. She does report a prior history of localized facial rash after receiving IV dye many years ago. When she obtained her CT of
the neck last week it was done with pretreatment with steroids, which she tolerated well. She has a remote history of smoking.
Past History
Past History
ED Past Medical History: Other (Dysfunctional uterine bleeding.)
ED Past Surgical History:
Social History
Tobacco: Non-smoker
Alcohol: None
Personal:
Living: with family
Employment: Employed
Family History
Family History: Other (Noncontributory)
Review of Systems
Review of Systems
Allergies reviewed?: Yes
Phy Exam
Physical Exam
Physical Exam:
Patient is awake, alert, appears in no acute distress, mild right sided facial swelling noted from mormonism to lower jaw, no bony pain on palpation, no bony deformity on palpation, no pain with mouth opening, no stridor, no trismus, posterior pharynx
is normal without asymmetry, bilateral tympanic membranes are normal without erythema or effusion, PERRL, EOMI mucous membranes moist, conjunctiva pink, heart regular rate and rhythm without murmurs or ectopy, lungs are clear to auscultation without
wheezes rales or rhonchi, no JVD, abdomen is soft and nontender on palpation, extremities without edema, GCS is 15, large telangiectasia noted over right mormonism
Course
Orders/Labs/Results
Orders:
Orders
12/25/24 09:02
Diphenhydramine [Benadryl] 50 mg IV NOW STA
Hydrocortisone Sod Succinate [Solu-Cortef] 200 mg IV NOW STA
12/25/24 09:03
0.9% Sodium Chloride 1000 ml [Nss] 1,000 ml IV BOLUS
12/25/24 09:05
CT Chest With Iv Contrast Urgent
Comment:
Reason For Exam: dyspnea, cancer staging
CT Facial Bones W/ Iv Contrast Urgent
Comment: recent diagnosis laryngeal CA
Reason For Exam: R facial swelling
12/25/24 09:08
Complete Blood Count/With Diff Urgent
Comprehensive Metabolic Panel Urgent
12/25/24 12:08
Add On- LAB Urgent
Tests Added?: LDH
12/25/24 12:09
LDH Urgent
Abnormal Lab Results
12/25/24
09:08
RDW 14.6 H %
(11.5-14.5)
Absolute Lymphs (auto) 0.8 L 10^3/uL
(1.2-3.4)
Neutrophils % 78.3 H %
(42.2-75.2)
Lymphocytes % 12.2 L %
(20.5-51.1)
Chloride 108 H mmol/L
(98-107)
Glucose 111 H mg/dl
(70-99)
Total Protein 9.4 H g/dl
(6.3-8.2)
12/25/24 09:08
12/25/24 09:08
Kidney function preserved, CBC reassuring.
Vital Signs
Initial and Last Documented VS:
Initial Vital Signs
Temp Pulse Resp BP Pulse Ox
98.2 F 110 18 137/90 96
12/25/24 08:11 12/25/24 08:11 12/25/24 08:11 12/25/24 08:11 12/25/24 08:11
Last Documented Vital Signs
Temp Pulse Resp BP Pulse Ox
98.2 F 110 18 113/70 95
12/25/24 08:11 12/25/24 08:11 12/25/24 08:11 12/25/24 11:10 12/25/24 12:00
MDM/Problems Addressed
Differential Diagnosis Includes:
Differential diagnosis to consider but not limited to metastatic disease, localized abscess, diminished lymphatic drainage related to neoplasm along with other etiologies considered
*Radiology
Radiology exam reviewed: radiology read reviewed (I reviewed CT chest and facial bone results-multiple irregular shaped part solid part ground glass nodular opacities left upper and lower lobes concerning for metastasis versus lymphoma versus
multifocal infection or inflammatory pneumonitis. Patient also with moderate to severe splenomegaly.)
*Pulse Oximetry
SaO2: 96
Patient hypoxic: no
*Critical Care Note
Total Time (30-74mins, 75-104mins- exclusive of procedures): Not Applicable
Data Reviewed
Review of Other/Old Records Reveals: Radiology Studies (I reviewed CT neck result from 12/18/2024:IMPRESSION: 1. Ovoid solid mass along the right aryepiglottic fold measuring 2.1 x 1.3 x 2.1 cm as above. This is most likely to have a neoplastic
etiology. There are both benign and malignant etiologies which are possible, further evaluation with direct vi)
Update Note
Update Note:
I discussed with patient need for CAT scan for further evaluation to assess for lymphadenopathy versus localized abscess related to swelling. I discussed with patient and present bedside to etiology symptoms likely related to
malignancy/mass effect. Will obtain CT neck along with chest as this was ordered to be completed on wednesday, however given patient requires steroid prep will do both to facilitate pt care. Pt and agree with plan at current.
1215: Once CT result available, I was in contact with Dr. Florian, who is familiar with the patient. He would recommend addition of LDH to labs and will help facilitate seeing patient in the office this week, is concerned for lymphoma given
presentation and CT results. I reviewed all test results with patient and present at the bedside. I discussed with them concern for malignancy as etiology of swelling. No indication for acute infection. I discussed with him current pain
management strategies, will give small prescription Tylenol with codeine to help until seen in follow-up. They are provided with a copy of their CAT scan results. They expressed understanding of discharge instructions along with return
precautions. They have no questions at the current time.
ED Attending Note
-
Portions of this chart may have been created with voice recognition software.� Occasional wrong word or��sound alike� substitutions may have occurred due to the inherent limitations of voice recognition software.
Discharge Plan
Departure
Patient Disposition: Home (Routine Discharge)
Date of Disposition: 12/25/24
Time of Disposition: 12:11
Patient with high blood pressure during this ER visit?: No
Discharge Problem:
Right facial swelling
Prescriptions:
New
acetaminophen-codeine 300-15 mg tablet
1 tab PO Q6H PRN (Reason: Pain) Qty: 10 0RF
No Action
triamcinolone acetonide 0.1 % Ointment
1 applic TOPICAL DAILYPRN PRN (Reason: rash)
doxycycline hyclate 100 mg Capsule
100 mg PO Q12 20 Days Qty: 40 0RF
cyanocobalamin (vitamin B-12) 1,000 mcg Tablet
1,000 mcg PO DAILY Qty: 30 0RF
famotidine [Pepcid AC] 20 mg Tablet
20 mg PO Q12H Qty: 0 0RF
Referrals:
Ladarius Florian MD [Active, ENT]
Discharge Problem: Right facial swelling
Jocelyn Randall MD [Family Provider, Family Practice]
Activity Restrictions/Additional Instructions:
Continue using Tylenol and ibuprofen as needed for pain. Add Tylenol with codeine as prescribed for any pain uncontrolled with the other medicines. Encourage fluids. Please follow-up with Dr. Florian this week as discussed.
Interventions
Interventions:
*Risk Screen - Suicide Last Done: 12/25/24 08:13
*General Assessment Last Done: 12/25/24 09:01
*Neglect/Abuse Screening Last Done: 12/25/24 09:01
*ED- Fall Risk Assessment Last Done: 12/25/24 09:01
*ED COVID-19 Vaccine History Last Done: 12/25/24 09:01
Discharge Date and Time
Print Language: SYRIAN
[2024-12-25] MEDS: SOLU-CORTEF 200 MG IV (09:28)
[2024-12-25] MEDS: BENADRYL 50 MG IV (09:28)
[2024-12-25 09:33] VITALS: BP 114/71
[2024-12-25 09:35] LABS: Hematocrit 42.4 % (37.0-47.0); Hemoglobin 14.1 g/dL (12.0-16.0); Mean Corp Hgb Conc. 33.3 g/dL (33.0-37.0); Mean Corpuscular Volume 84.3 fL (81.0-99.0); Nucleated Red Blood Cells % 0 %; Platelet Count 280 10^3/uL (130-400); Red Cell Dist. Width 14.6 % (11.5-14.5)
[2024-12-25 09:53] LABS: ALT (SGPT) 13 U/L (0-35); AST (SGOT) 21 U/L (14-36); Albumin 3.9 g/dl (3.5-5.0); Alkaline Phosphatase 74 U/L (38-126); Blood Urea Nitrogen 17 mg/dl (7-17); Calcium 9.3 mg/dl (8.4-10.2); Carbon Dioxide 24 mmol/L (22-30); Chloride 108 mmol/L (98-107); Estimated Creatinine Clearance 86 ml/min; Glucose 111 mg/dl (70-99); Potassium 4.6 mmol/L (3.5-5.1); Sodium 138 mmol/L (135-145); Total Protein 9.4 g/dl (6.3-8.2); eGFR > 60.00
[2024-12-25 10:00] VITALS: BP 115/77
[2024-12-25 11:10] VITALS: BP 113/70
[2024-12-25 12:00] VITALS: BP 112/75
[2024-12-25 12:59] LABS: LDH 180 U/L (120-246)
== END 2024-12-25 13:00 | disposition home or self-care (01) ==
LOC: EMR 08:10
PROVIDERS: EMERGENCY PHYSICIAN Emergency Medicine; FAMILY PHYSICIAN Family Medicine
DX: R22.0 Localized swelling, mass and lump, head (principal); R49.0 Dysphonia; N93.8 Other specified abnormal uterine and vaginal bleeding; C32.9 Malignant neoplasm of larynx, unspecified
CPT/HCPCS: 99284; 96374; 96375; 96361; 70487; 71260; 80053; 83615; 85025; Q9967